=== PATIENT | male | born 1970 | race Caucasian/White ===

== ENCOUNTER 2018-08-23 11:58 | Emergency (ER) | payer MEDICAID ==
--- NOTE | 2018-08-23 12:41 | EDPHY ---
H & P Stated Complaint: Painful "pop" c burning over stim battery in Lback. Battery off, pain persi Source: Patient, Family () Exam Limitations: Clinical condition (Traumatic brain injury) - Personal History Current Tetanus/Diphtheria Vaccine: Yes - Medical/Surgical History Hx Asthma: No Hx Chronic Respiratory Disease: No Hx Diabetes: No Hx Cardiac Disease: No Hx Renal Disease: No Hx Cirrhosis: No Hx Alcoholism: No Hx HIV/AIDS: No Hx Splenectomy or Spleen Trauma: No Other PMH: Lumbar fusions, stabilizing rods, HTN, PTSD, anxiety, deprssion - Social History Smoking Status: Heavy smoker Time Seen by Provider: 08/23/18 12:40 HPI/ROS: HPI: This is a 47-year-old male who presents with Chief Complaint: Painful "pop" c burning over stim battery in Lback. 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 Patient reports that he has a history of lumbar fusions at L3-L4, L4-L5, L5-S1. He is followed by Dr. Pool at [facility] for pain management. He has burning over his battery stimulator in left back. Patient turned his battery off. His pain persists. picked him up at work and drove him to the emergency room. reports that he does not use narcotics and is not requesting a cardiacs but needs Toradol and a muscle relaxer. Denies any change in bowel habits. Was able to get into the car and get out of the car and walking to the emergency room without difficulty. Denies LOC/head injury/neck pain/dizziness/nausea/vomiting/amnesia. Modifying Factors: Takes Flexeril regular home medications Comment: ROS: A comprehensive 10 system review of systems is otherwise negative aside from elements mentioned in the history of present illness. MEDICAL/SURGICAL/SOCIAL HISTORY: Medical/surgical history: Lumbar fusions, stabilizing rods, HTN, PTSD, anxiety , depression. Social history: Heavy smoker. Employed. . CONSTITUTIONAL: Overweight, polite and cooperative, middle-aged white male, awake and alert, no obvious distress HEENT: Atraumatic and normocephalic. NECK: supple, no midline tenderness, flexion 45 degrees, extension 45 degrees, right and left lateral flexion 45 degrees. No meningismus. Cardiovascular: Normal S1/S2, regular rate, regular rhythm, without murmur rub or gallop. PULMONARY/CHEST: Symmetrical and nontender. no crepitus. Clear to auscultation bilaterally. Good air movement. No accessory muscle usage. ABDOMEN: Soft, nondistended, nontender, no ecchymosis. PELVIC: no pain with rocking; bilateral hips flexion 125 degrees, extension 30 degrees, with no pain internal rotation and no pain external rotation. BACK: Left L2-L3 reproducible paraspinous muscle tenderness and spasm; No midline tenderness, deep tendon reflexes 2/2, no pain with straight leg raise, No foot drop. Achilles reflexes are equal bilaterally. Able to walk on heels and toes relatively well. EXTREMITIES: 2/2 pulses, strength 5/5, DIP/PIP/MCP flexion/extension intact with good light touch sensation. no deformities, no clubbing, no cyanosis or edema. NEUROLOGICAL: no focal neuro deficits. GCS 15. Light touch sensation intact. SKIN: Warm and dry, no erythema. no rash. Good capillary refill. (No Fried) Constitutional: Initial Vital Signs Temperature (C) 36.3 C 08/23/18 12:04 Heart Rate 79 08/23/18 12:04 Respiratory Rate 18 08/23/18 12:04 Blood Pressure 129/82 H 08/23/18 12:04 O2 Sat (%) 92 08/23/18 12:04 O2 Delivery Mode Room Air Allergies/Adverse Reactions: No Known Allergies Allergy (Unverified 08/23/18 12:03) Medical Decision Making ED Course/Re-evaluation: Vital signs reviewed and stable upon arrival. No neurological deficits to warrant emergent MRI in the emergency room Patient reports that he has spasms every once in a while and politely declines any imaging as he has close follow-up with Neurosurgery and Pain Management Patient is requesting IM Toradol and IM Valium for muscle spasms 1335: Reassessed patient who reports pain is now down to a 6/10. reports that they have a follow-up appointment with the surgeon regarding the neurostimulator. Patient is able to transfer out of bed and ambulate without difficulty. feels comfortable taking patient home. No signs of neurovascular compromise/tenting of skin/compartment syndrome/ extremities and joints examined above and below area of concern and are neurovascularly intact/cauda equina syndrome. This patient was seen under the supervision of my secondary supervising physician. I evaluated care for this patient independently. (No Fried) Differential Diagnosis: Back pain including but not limited to muscular pain, herniated disc, spine fracture, intra-abdominal causes and urinary tract infection. (No Fried) Other Provider: The patient was evaluated and managed by the Physician Trim Carpenter. My co- signature indicates that I have reviewed this chart and I agree with the findings and plan of care as documented. I am the secondary supervising physician. (Mirna Mcginnis) - Data Points Medications Given: Discontinued Medications Diazepam (Valium) 5 mg IM EDNOW ONE Stop: 08/23/18 12:49 Last Admin: 08/23/18 13:02 Dose: 5 mg Ketorolac Tromethamine (Toradol) 30 mg IM EDNOW ONE Stop: 08/23/18 12:49 Last Admin: 08/23/18 13:01 Dose: 30 mg Departure - Departure Disposition: Home, Routine, Self-Care Clinical Impression: Lumbar back sprain Condition: Good Instructions: Low Back Strain (ED) Additional Instructions: Please keep follow-up appointment with pain management and spine surgery. Return to the ER immediately if you have new or worsening back pain, fevers/ chills, flu like symptoms, incontinence or inability to urinate or defecate, weakness, paralysis, or any other symptom that concerns you Referrals: KASEY ALBERT [Other] - As per Instructions
[2018-08-23] MEDS ORDERED: DIAZEPAM 5 MG/ML 1 ML SYR IM ONE (12:48)
[2018-08-23] MEDS ORDERED: KETOROLAC 30 MG/1 ML SDV IM ONE (12:48)
[2018-08-23 13:45] VITALS: BP 120/78
== END 2018-08-23 13:45 | disposition home or self-care (01) ==
DX: S39.012A Strain of muscle, fascia and tendon of lower back, initial encounter (principal); I10 Essential (primary) hypertension; X50.9XXA Other and unspecified overexertion or strenuous movements or postures, initial encounter; Y93.9 Activity, unspecified; Y92.9 Unspecified place or not applicable; Y99.9 Unspecified external cause status
CPT/HCPCS: J1885; J3360